=== PATIENT | female | born 1970 ===

== ENCOUNTER 2021-01-30 05:30 | Day surgery (SDC) | payer OTHER ==
[2021-01-30] MEDS ORDERED: NEXIUM 24HR20 MG PO (08:37)
== END 2021-01-30 09:50 | disposition home or self-care (01) ==
LOC: AMB-ENDOS 05:30 → EDBD 07:15 → AMB-ENDOS 09:50
PROVIDERS: ATTEND Surgery
DX: D13.1 Benign neoplasm of stomach (principal); K44.9 Diaphragmatic hernia without obstruction or gangrene; Z20.822 Contact with and (suspected) exposure to COVID-19